=== PATIENT | male | born 1990 | race Caucasian/White ===

== ENCOUNTER 2020-06-18 08:58 | Emergency (ER) | payer OTHER ==
[~2020-06-18] VITALS: Wt 77.1 kg
[~2020-06-18 08:58] MED LIST: AUGMENTIN 500 M1 TAB PO
[2020-06-18 09:57] LABS: BILIRUBIN Negative (Negative); BLOOD 2+ (Negative); CLARITY Clear (Clear); COLOR Yellow (Yellow); GLUCOSE Negative (Negative); KETONE Negative (Negative); LEUKO ESTERASE Negative (Negative); NITRITE Negative (Negative); SPECIFIC GRAVITY 1.025 (1.001-1.030); UROBILINOGEN 0.2 E.U./dl (0.0-1.0)
[2020-06-18 09:59] LABS: RBC 16-20 rbc/hpf (0-2)
[2020-06-18 10:00] LABS: BACTERIA TRACE; MUCOUS 1+
[2020-06-18] MEDS ORDERED: PYRIDIUM200 M1 PO (10:35)
== END 2020-06-18 10:38 | disposition home or self-care (01) ==
LOC: ED 08:58
PROVIDERS: Emergency Medicine
DX: N20.1 Calculus of ureter (principal)

== ENCOUNTER 2024-07-12 23:18 | Emergency (ER) | payer OTHER ==
[~2024-07-12] VITALS: Ht 175.2 cm; Wt 80.7 kg
[~2024-07-12 23:18] MED LIST changes: +PYRIDIUM200 M1 PO
[2024-07-12] MEDS ORDERED: METHOCARBAMOL 500 MG TAB PO ONE (23:30)
[2024-07-12] MEDS ORDERED: METHOCARBAMOL500 M1 PO (23:31)
[2024-07-12] MEDS ORDERED: NAPROXEN250 MG PO (23:31)
[2024-07-12] MEDS ORDERED: NAPROXEN 250 MG TAB PO ONE (23:35)
== END 2024-07-12 23:43 | disposition home or self-care (01) ==
LOC: ED 23:18
DX: S39.012A Strain of muscle, fascia and tendon of lower back, initial encounter (principal); X50.0XXA Overexertion from strenuous movement or load, initial encounter; Y93.F2 Activity, caregiving, lifting; Y92.89 Other specified places as the place of occurrence of the external cause; Y99.0 Civilian activity done for income or pay